=== PATIENT | female | born 1980 | race Caucasian/White ===

== ENCOUNTER 2018-08-09 08:00 | Inpatient (IN) | payer OTHER ==
[~2018-08-09 08:00] MED LIST: CITRIC ACID/SODIUM CITRATE 30 ML UNIT-DOSE CUP PO ONE; ELECTROLYTE-148 SOLN 1,000 ML IV SCH
[2018-08-09] MEDS ORDERED: ELECTROLYTE-148 SOLN 1,000 ML IV SCH ×2 (08:45→09:00)
[2018-08-09] MEDS ORDERED: CITRIC ACID/SODIUM CITRATE 30 ML UNIT-DOSE CUP PO ONE (08:45)
--- NOTE | 2018-08-09 08:51 | HP ---
Past Medical History - Primary Care Physician PCP:: Steven Marquez - Admission Chief Complaint: post date, AMA, polyhydramnions, non engaged head History of Present Illness: 38 yo f 40.5 weeks, with polyhydramnions and non engaged head requesting c/ s, declined induction. risks associated with c/s discussed with patient in detail . aware risks of infection, bleeding, DVT,risks for future discussed with patient, History Source: Patient Limitations to Obtaining History: No Limitations - Past Medical History Gastrointestinal: Yes: Esophageal Varices ...: 1 ...Para: 0 ...Term: 0 ...: 0 ...Spon : 0 ...Induced : 0 ...Multiple Gestation: 0 - Past Surgical History Hx Myomectomy: No - Smoking History Have you smoked in the past 12 months: No - Alcohol/Substance Use Hx Alcohol Use: No History of Substance Use: reports: None - Social History Usual Living Arrangement: Yes: With Spouse History of Recent Travel: No Home Medications - Allergies Allergies/Adverse Reactions: Allergies Allergy/AdvReac Type Severity Reaction Status Date / Time No Known Allergies Allergy Verified 08/09/18 08:17 - Home Medications Home Medications: Ambulatory Orders Vits96/Iron Fum/Folic [ Tablet] 1 each PO DAILY 08/09/18 Review of Systems - Review of Systems Constitutional: reports: No Symptoms Eyes: reports: No Symptoms HENT: reports: No Symptoms Neck: reports: No Symptoms Respiratory: reports: No Symptoms Gastrointestinal: reports: No Symptoms Genitourinary: reports: No Symptoms Breasts: reports: No Symptoms Reported Musculoskeletal: reports: No Symptoms Integumentary: reports: No Symptoms Neurological: reports: No Symptoms Endocrine: reports: No Symptoms Hematology/Lymphatic: reports: No Symptoms Psychiatric: reports: No Symptoms Physical Exam - Maternity Constitutional: Yes: Obese Eyes: Yes: WNL HENT: Yes: WNL Neck: Yes: WNL Breast(s): Yes: WNL - Abdominal Exam/OB Number of Fetuses: Single Presentation: Vertex Contractions: No Intensity: Unaware Monitor Mode: External Heart Rate (range): 140 Heart Rate Location: [facility] Category: I Accelerations: Uniform Decelerations: None - Vaginal Exam/OB Vaginal Bleediing: No Speculum Exam: No Dilatation (cm): 0 Effacement (%): 50 Presentation: Vertex/Position Station: -4 - Physical Exam Musculoskeletal: Yes: WNL Extremities: Yes: WNL Edema: Yes Edema: LLE: Trace, RLE: Trace Deep Tendon Reflex Grade: Normal +2 ...Motor Strength: WNL Psychiatric: Yes: WNL Problem List - Problems (1) Post-dates Code(s): O48.0 - POST-TERM Qualifiers: Post-term type: 40-42 weeks gestation Qualified Code(s): O48.0 - Post-term (2) Polyhydramnios affecting Code(s): O40.9XX0 - POLYHYDRAMNIOS, UNSP TRIMESTER, NOT APPLICABLE OR UNSP (3) High head at term with problem Code(s): O32.4XX0 - MATERNAL CARE FOR HIGH HEAD AT TERM, NOT APPLICABLE OR UNSP Qualifiers: Fetus number: single or unspecified fetus Qualified Code(s): O32.4XX0 - Maternal care for high head at term, not applicable or unspecified (4) Advanced maternal age (AMA) in Code(s): [id number] - Assessment/Plan primary LST c/s, risks and benfit discussed with patient in detail, ulternatives explained
[2018-08-09 08:54] VITALS: BMI 34.9
[2018-08-09] MEDS ORDERED: OXYTOCIN 20 UNITS in 0.9% NS 40 UNIT/2,000 ML INFUS.BAG IV ONE (09:20)
[2018-08-09] MEDS ORDERED: ONDANSETRON 4 MG/2 ML VIAL IVPUSH PRN (09:58)
[2018-08-09] MEDS ORDERED: morphine SULFATE/PF 0.5 MG/ML (2cc Syringe - QUVA) EP ONE (09:58)
[2018-08-09] MEDS ORDERED: PRENATAL VITAMINS W/ FOLIC ACID TABLET (FP) PO SCH (10:00)
[2018-08-09] MEDS ORDERED: morphine SULFATE/PF 0.5 MG/ML (2cc Syringe - QUVA) ONE (10:05)
[2018-08-09] MEDS ORDERED: ceFAZolin SODIUM 1 GM VIAL ONE (10:06)
[2018-08-09] MEDS ORDERED: LIDOCAINE HCL/PF 2% SDV 5ML VIAL ONE (10:38)
[2018-08-09] MEDS ORDERED: ePHEDrine SULFATE 50 MG/1 ML AMPULE ONE (10:46)
[2018-08-09] MEDS ORDERED: MIDAZOLAM HCL 2 MG/2 ML SINGLE DOSE VIAL ONE (10:53)
[2018-08-09 11:41] LABS: VENOUS PC02 45.8 mmHg (41-51)
[2018-08-09 11:45] LABS: VENOUS PH 7.33 (7.31-7.41); VENOUS PO2 19.4 mmHg (30-40)
[2018-08-09 11:46] LABS: ARTERIAL BLD GAS O2 SATURATION 6.2 % (95-98); ARTERIAL BLOOD GAS BASE EXCESS -1.9 meq/l (-2-2); ARTERIAL BLOOD GAS PCO2 58.4 mmHg (35-45); ARTERIAL BLOOD GAS pH 7.27 (7.35-7.45)
[2018-08-09 11:48] LABS: ARTERIAL BLOOD GAS PO2 7.9 mmHg (80-105)
[2018-08-09] MEDS ORDERED: BENZOCAINE 28 GM HEMORRHOIDAL OINTMENT PR PRN (11:58)
[2018-08-09] MEDS ORDERED: METHYLERGONOVINE MALEATE 0.2 MG/1 ML AMP IM PRN (11:58)
[2018-08-09] MEDS ORDERED: WITCH HAZEL 50% (TUCKS) 40 PAD/JAR PAD TP PRN (11:58)
[2018-08-09] MEDS ORDERED: diphenhydrAMINE HCL 25 MG CAPSULE (FP) PO PRN (11:58)
[2018-08-09] MEDS ORDERED: BENZOCAINE 20% 57 GM BOTTLE TP PRN (11:58)
[2018-08-09] MEDS ORDERED: OXYTOCIN 20 UNITS in 0.9% NS 20 UNIT/1,000 ML INFUS.BAG IV SCH (12:00)
--- NOTE | 2018-08-09 12:06 | OP ---
Operative Note - Note: Operative Date: 08/09/18 Pre-Operative Diagnosis: postdate , poly, head high at term Operation: primary LST c/s Findings: live baby girl 9/9, ROt , cord around neck one , AF 1000cc Post-Operative Diagnosis: Same as Pre-op Surgeon: Steven Marquez Mixing House Operator: Deana Marin Anesthesia: Spinal Specimens Removed: placenta Estimated Blood Loss (mls): 500 Drains & Tubes with Location: [place] Operative Report Dictated: Yes
[2018-08-09] MEDS: CEFAZOLIN 1 GM/D5W 1 GM/50 ML BAG IVPB SCH (17:11)
[2018-08-09] MEDS: IBUPROFEN 800 MG/8 ML IJ IVPB PRN (22:16)
[2018-08-10] MEDS: CEFAZOLIN 1 GM/D5W 1 GM/50 ML BAG IVPB SCH (02:18)
[2018-08-10] MEDS: IBUPROFEN 800 MG/8 ML IJ IVPB PRN (04:18)
--- NOTE | 2018-08-10 06:27 | OP ---
DATE OF OPERATION: 08/08/2018 PREOPERATIVE DIAGNOSIS: , post dates, 40.5 weeks gestation, head high at term, advanced maternal age, and polyhydramnios. Request of section. POSTOPERATIVE DIAGNOSIS: Primary low segment transverse section. SURGEON: Steven Vo MD CUSTOM BOW MAKER: Deana Marin MD ANESTHESIA: Spinal. ANESTHESIOLOGIST: Brandon Motley MD ESTIMATED BLOOD LOSS: 500 mL. FINDING: Live baby girl, Apgars 9 and 9, ROT position with cord around the neck x1, and polyhydramnios. OPERATION: The patient was taken to the operating room, had adequate spinal anesthesia. Abdomen and perineum were prepped and draped. Pfannenstiel abdominal skin incision was made. Abdominal wall was cut layer by layer until peritoneum was exposed and incised. Upon entering the abdominal cavity, lower uterine segment was identified, uterovesical fold of peritoneum was established, and bladder was pushed down. Then, with the lower blade of the [place] retractor in the pelvis, a low transverse uterine incision was made. Amniotic sac was entered. There was a large amount of amniotic fluid, probably about 1000 mL. Then, uterine incision extended laterally with bandage scissors. Head delivered from right occiput transverse position. Nasopharynx was suctioned. Cord around the neck x1 reduced. Live baby girl was delivered, 9, 9. Placenta was delivered manually. Uterine cavity was cleaned of all remaining tissue. Uterine incision was closed in 2 layers, 1st layer with 0 Biosyn continuous suture, the 2nd layer with 0 Biosyn imbricating the 1st layer. Bladder flap was closed with 0 Biosyn continuous suture. Both tubes and ovaries were checked, were normal. No active bleeding was seen. All the lap pad, sponge, and instrument counts were correct. Then, peritoneum was closed with 0 Biosyn continuous suture, muscles were brought together with interrupted sutures of 0 Biosyn, fascia was closed with 0 Biosyn continuous suture, subcutaneous fat with interrupted suture of 0 Biosyn, and skin was closed with 3-0 Vicryl subcuticular suture. Patient tolerated the procedure well, left the OR in good condition. STEVEN VO M.D. [id number]
--- NOTE | 2018-08-10 06:51 | PN ---
Post Progress Note - Subjective Subjective: Patient without acute complaints. Reports tolerating oral intake without nausea or vomiting. Ambulating without dizziness. Denies fevers or chills. Pain well controlled with oral pain medication. without difficulty. Passing flatus Post Day: 1 Type of Delivery: Primary C/S Vital Signs: Vital Signs Temperature 98.4 F 08/10/18 05:59 Pulse Rate 61 08/10/18 05:59 Respiratory Rate 18 08/10/18 05:59 Blood Pressure 123/62 08/10/18 05:59 O2 Sat by Pulse Oximetry (%) 99 08/09/18 13:00 Breast Exam: Yes: Soft Uterus: Yes: Fundus Firm Incision: Yes: Dressing dry and intact Abdomen/GI: Yes: Abdomen soft Lochia: Yes: Rubra Lochia, amount: Small Extremities: Yes: Calves non-tender Perineum: Yes: Intact Activity: Ambulating Assessment/Plan 38yo P1 s/p Primary c/section VSS, Afebrile Doing well follow CBC Rh positive - no need for RhoGam encourage ambulation and cont. Routine care
[2018-08-10 08:19] LABS: BASO % 0.4 % (0-2.0); EOS % 0.2 % (0-4.5); HEMATOCRIT 34.5 % (32.4-45.2); HEMOGLOBIN 11.4 GM/dL (10.7-15.3); LYMPH % 10.5 % (8-40); MCH 30.1 pg (25.7-33.7); MCHC 33.1 g/dl (32.0-36.0); MEAN CELL VOLUME 90.8 fl (80-96); MEAN PLT VOLUME 9.1 fl (7.5-11.1); MONO % 6.2 % (3.8-10.2); NEUT % 82.7 % (42.8-82.8); PLATELET COUNT 201 K/MM3 (134-434); RDW 13.6 % (11.6-15.6); WHITE BLOOD COUNT 14.1 K/mm3 (4.0-10.0)
[2018-08-10] MEDS: ENOXAPARIN NA (PORCINE) 40 MG/0.4 ML DISP.SYRIN SQ SCH (09:36)
[2018-08-10] MEDS: PRENATAL VITAMINS W/ FOLIC ACID TABLET (FP) PO SCH (09:43)
[2018-08-10] MEDS: oxyCODONE HCL 5 MG TABLET PO PRN ×4 (10:50→21:50)
[2018-08-10] MEDS: IBUPROFEN 600 MG TABLET (FP) PO PRN ×4 (10:50→21:51)
[2018-08-10] MEDS: BISACODYL 10 MG SUPP.RECT RC PRN (14:41)
--- NOTE | 2018-08-10 15:08 | PN ---
Progress Note (short form) - Note Progress Note: Anesthesia Post op/Pain Pt seen and examined S:Alert and awake comfortable O: Vital Signs Temperature 97.8 F 08/10/18 09:00 Pulse Rate 79 08/10/18 09:00 Respiratory Rate 18 08/10/18 10:00 Blood Pressure 127/62 08/10/18 09:00 O2 Sat by Pulse Oximetry (%) 99 08/09/18 13:00 CBC, BMP 08/10/18 07:35 a/P: Current Active Problems Advanced maternal age (AMA) in (Acute) High head at term with problem (Acute) Polyhydramnios affecting (Acute) Post-dates (Acute) s/p c section Doing well post op Continue current care Bill Smith MD
[2018-08-10] MEDS: SIMETHICONE 80 MG TAB.CHEW (FP) PO PRN (20:52)
[2018-08-11] MEDS: oxyCODONE HCL 5 MG TABLET PO PRN ×2 (02:23→22:56)
[2018-08-11] MEDS: SIMETHICONE 80 MG TAB.CHEW (FP) PO PRN ×5 (02:23→18:37)
[2018-08-11] MEDS: IBUPROFEN 600 MG TABLET (FP) PO PRN ×6 (02:23→22:57)
--- NOTE | 2018-08-11 02:23 | PN ---
Post Progress Note - Subjective Subjective: Patient without acute complaints. Reports tolerating oral intake without nausea or vomiting. Ambulating without dizziness. Denies fevers or chills. Pain well controlled with oral pain medication. without difficulty. Passing flatus. Post Day: 2 Type of Delivery: Primary C/S Vital Signs: Vital Signs Temperature 97.4 F L 08/10/18 22:00 Pulse Rate 90 08/10/18 22:00 Respiratory Rate 20 08/10/18 22:00 Blood Pressure 115/93 08/10/18 22:00 O2 Sat by Pulse Oximetry (%) 99 08/09/18 13:00 Breast Exam: Yes: Soft Uterus: Yes: Fundus Firm, Fundus below umbilicus Incision: Yes: Sutures intact Abdomen/GI: Yes: Abdomen soft, Abdominal Distention (minimia;l, soft), Passing flatus, Tolerating PO. No: Tender Lochia: Yes: Serosa Lochia, amount: Small Extremities: Yes: Calves non-tender, Edema (trace) Activity: Ambulating - Labs Labs: CBC WBC 14.1 K/mm3 (4.0-10.0) H 08/10/18 07:35 RBC 3.80 M/mm3 (3.60-5.2) 08/10/18 07:35 Hgb 11.4 GM/dL (10.7-15.3) 08/10/18 07:35 Hct 34.5 % (32.4-45.2) 08/10/18 07:35 MCV 90.8 fl (80-96) 08/10/18 07:35 MCH 30.1 pg (25.7-33.7) 08/10/18 07:35 MCHC 33.1 g/dl (32.0-36.0) 08/10/18 07:35 RDW 13.6 % (11.6-15.6) 08/10/18 07:35 Plt Count 201 K/MM3 (134-434) 08/10/18 07:35 MPV 9.1 fl (7.5-11.1) 08/10/18 07:35 Absolute Neuts (auto) 11.6 K/mm3 (1.5-8.0) H 08/10/18 07:35 Neutrophils % 82.7 % (42.8-82.8) 08/10/18 07:35 Lymphocytes % 10.5 % (8-40) D 08/10/18 07:35 Monocytes % 6.2 % (3.8-10.2) 08/10/18 07:35 Eosinophils % 0.2 % (0-4.5) 08/10/18 07:35 Basophils % 0.4 % (0-2.0) 08/10/18 07:35 Nucleated RBC % 0 % (0-0) 08/10/18 07:35 Assessment/Plan 38 yo POD # 2 s/p R CD afebrile, vital signs stable doing well 1. Continue routine postoperative care. 2. Encourage ambulation and incentive spirometer use 3. Continue oral pain medication 4. Anticipate discharge home postoperative day #3 or #4
[2018-08-11] MEDS: PRENATAL VITAMINS W/ FOLIC ACID TABLET (FP) PO SCH (09:38)
[2018-08-11] MEDS: ENOXAPARIN NA (PORCINE) 40 MG/0.4 ML DISP.SYRIN SQ SCH (09:38)
[2018-08-11] MEDS: OXYTOCIN 20 UNITS in 0.9% NS 20 UNIT/1,000 ML INFUS.BAG IV SCH ×3 (09:43→22:32)
[2018-08-11] MEDS: ACETAMINOPHEN 325 MG TABLET (FP) PO PRN ×3 (10:14→18:35)
[2018-08-11] MEDS ORDERED: SENNOSIDES/DOCUSATE COMBO (SENNA PLUS) TABLET (UD) PO PRN (22:00)
[2018-08-12] MEDS: IBUPROFEN 600 MG TABLET (FP) PO PRN ×5 (03:09→21:23)
[2018-08-12] MEDS: oxyCODONE HCL 5 MG TABLET PO PRN (03:09)
--- NOTE | 2018-08-12 06:32 | PN ---
Progress Note (short form) - Note Progress Note: pod3 , no c/o . ambulating, had BM CBC, BMP 08/10/18 07:35 Last Vital Signs Temp Pulse Resp BP Pulse Ox 97.9 F 59 L 18 139/73 99 08/11/18 22:00 08/11/18 22:00 08/11/18 22:00 08/11/18 22:00 08/09/18 13:00 abdomen soft, no distesion , no cva BS present, incision dry, clean, no discharge, healing well no excess vaginal bleeding, no calf tenderness plan ambulate cbc today d/c home in am Problem List - Problems (1) Post-dates Code(s): O48.0 - POST-TERM Qualifiers: Post-term type: 40-42 weeks gestation Qualified Code(s): O48.0 - Post-term (2) Polyhydramnios affecting Code(s): O40.9XX0 - POLYHYDRAMNIOS, UNSP TRIMESTER, NOT APPLICABLE OR UNSP (3) High head at term with problem Code(s): O32.4XX0 - MATERNAL CARE FOR HIGH HEAD AT TERM, NOT APPLICABLE OR UNSP Qualifiers: Fetus number: single or unspecified fetus Qualified Code(s): O32.4XX0 - Maternal care for high head at term, not applicable or unspecified (4) Advanced maternal age (AMA) in Code(s): [id number] -
[2018-08-12] MEDS: ACETAMINOPHEN 325 MG TABLET (FP) PO PRN ×4 (07:54→21:24)
[2018-08-12] MEDS: SIMETHICONE 80 MG TAB.CHEW (FP) PO PRN ×4 (07:55→21:23)
[2018-08-12 07:56] LABS: BASO % 0.7 % (0-2.0); EOS % 1.9 % (0-4.5); HEMATOCRIT 32.9 % (32.4-45.2); HEMOGLOBIN 11.2 GM/dL (10.7-15.3); LYMPH % 22.7 % (8-40); MCH 30.9 pg (25.7-33.7); MCHC 33.9 g/dl (32.0-36.0); MEAN PLT VOLUME 8.7 fl (7.5-11.1); MONO % 5.9 % (3.8-10.2); NEUT % 68.8 % (42.8-82.8); RBC 3.62 M/mm3 (3.60-5.2); RDW 13.8 % (11.6-15.6); WHITE BLOOD COUNT 10.2 K/mm3 (4.0-10.0)
[2018-08-12 08:25] LABS: PLATELET COUNT 270 K/MM3 (134-434)
[2018-08-12] MEDS: PRENATAL VITAMINS W/ FOLIC ACID TABLET (FP) PO SCH (09:45)
[2018-08-12] MEDS: ENOXAPARIN NA (PORCINE) 40 MG/0.4 ML DISP.SYRIN SQ SCH (09:45)
--- NOTE | 2018-08-12 18:24 | PATH ---
Surgical Pathology Report Patient Name: MAYUR ZAMORA [facility]. Rec. #: [id number] /Age/Gender: 1980 (Age: 38) / F Account: [id number] Location: [facility] OBS/CASE SEALER Taken: 08/09/2018 Received: 08/10/2018 Reported: 08/12/2018 Physicians: Steven Marquez M.D. Specimen(s) Received PLACENTA Clinical History , 40.5 weeks, post dates, polyhydramnios, advanced maternal age Final Diagnosis PLACENTA: THIRD TRIMESTER PLACENTA WITH FOCAL CALCIFICATION. TRIVASCULAR CORD. MEMBRANES WITH NO DIAGNOSTIC ABNORMALITIES. Electronically Signed Dorothy Eastman M.D. Gross Description The specimen is received fresh labeled placenta and is a 556 gram, 18.0 x 17.0 x 2.7 cm. placenta with attached membranes and umbilical cord. The attached membranes are steele, translucent with focal opacities and display circumarginate insertion. The umbilical cord measures 16 cm. in length and averages 1 cm. in diameter. The cord inserts centrally. No true knots or strictures are identified. Cut surface of the umbilical cord reveals 3 vessels. The surface is syed blue with moderate fibrin deposition and appropriate caliber vessels. The maternal surface is red-brown with focal defects. Sectioning reveals red-brown, spongy parenchyma. No lesions are identified. Ear Nose Throat Physician sections are submitted in three cassettes as follows: 1- membrane rolls and umbilical cord; 2-3- full thickness sections of placenta. /08/11/2018 [facility]08/11/2018
[2018-08-12] MEDS: BISACODYL 10 MG SUPP.RECT RC PRN (21:24)
--- NOTE | 2018-08-13 09:55 | DS ---
Physical Exam-MANAGER CATEGORY Vital Signs: Vital Signs Temperature 98.3 F 08/12/18 21:04 Pulse Rate 58 L 08/12/18 21:04 Respiratory Rate 18 08/12/18 21:04 Blood Pressure 115/72 08/12/18 21:04 O2 Sat by Pulse Oximetry (%) 99 08/09/18 13:00 Constitutional: Yes: Well Nourished, No Distress, Calm Eyes: Yes: WNL HENT: Yes: WNL Neck: Yes: WNL, Supple, Trachea Midline Cardiovascular: Yes: WNL, Regular Rate and Rhythm Respiratory: Yes: WNL, Regular, CTA Bilaterally Gastrointestinal: Yes: WNL, Normal Bowel Sounds, Soft Pelvis: Yes: WNL External Genitalia: Yes: Normal ....Post : Yes: Uterus firm, Uterus non-tender Breast(s): Yes: WNL Musculoskeletal: Yes: WNL Extremities: Yes: WNL Edema: Yes (trace) Edema: LUE: Trace, LLE: Trace Integumentary: Yes: WNL Wound/Incision: Yes: Clean/Dry, Well Approximated Neurological: Yes: WNL, Alert, Oriented ...Motor Strength: WNL Psychiatric: Yes: WNL, Alert, Oriented Labs: CBC, BMP 08/12/18 07:12 Delivery - Delivery Type of Anesthesia: Spinal Episiotomy/Laceration: None EBL (cc): 500 Delivery, Single - Stages of Labor Date of Delivery: 08/09/18 Time of Delivery: 11:05 Time Placenta Delivered: 11:06 - Condition of Target Aircraft Technician/Corporate Wellness Coordinator Present: Yes Name: Kamila Hall Gender: Female Weight: 8 lb 8 oz Position: Right, OT Total Hours ROM (Hrs/Mins): 0/2 - 1 Minute Total Score: 9 5 Minutes Total Score: 9 - [place] Feeding Plan Initial Plan: Exclusive throughout hospitalization Remarks - Remarks Remarks: Instructed - nothing vaginally, Return to the office in 1 week for incision check Discharge Summary Reason For Visit: C SECTION Current Active Problems Advanced maternal age (AMA) in (Acute) High head at term with problem (Acute) Polyhydramnios affecting (Acute) Post-dates (Acute) Procedures: Principal: Primary LST c/section Hospital Course: Unremarkable Condition: Good - Instructions Diet, Activity, Other Instructions: Return to office in 1 week for incision check Physical activity Resume your normal everyday activity as tolerated no heavy lifting or exercise until seen by your surgeon. You may walk unlimited dino of and climb stairs. You may resume driving the car when you feel safe and comfortable behind the wheel. No sexual activity as instructed. Wound care If you have a bandage, leave it on, and keep dry for 48-72 hours. After that time discard the outer bandage. If they are tapes on the skin under the out of bandage leave them in place. They will peel off in the next 7 to 10 days. Do Not Peel them off. You may shower the day after surgery. If there are tapes present on the skin, you may shower over them. Diet There are no dietary restrictions. Eat healthy, high-fiber foods. Drink 6 to 8 glasses of liquid each day. This will assist in keeping your bowels are regular. Pain management You may take Tylenol or acetaminophen or Ibuprofen (for example, Motrin, Advil etc.) as prescribed for moderate to severe pain. Call MD for any of the following: Severe pain not relieved by medication Fever of 101 or higher Excessive bleeding or drainage on dressing Inability to urinate Referrals: Steven Marquez MD [Staff Physician] - Disposition: HOME - Home Medications Comprehensive Discharge Medication List: Ambulatory Orders Vits96/Iron Fum/Folic [ Tablet] 1 each PO DAILY 08/09/18 Docusate Sodium [Colace -] 100 mg PO BID PRN #30 capsule 08/11/18 Ibuprofen [Motrin -] 600 mg PO QID #60 tablet 08/11/18
[2018-08-13] MEDS: PRENATAL VITAMINS W/ FOLIC ACID TABLET (FP) PO SCH (10:17)
[2018-08-13] MEDS: ENOXAPARIN NA (PORCINE) 40 MG/0.4 ML DISP.SYRIN SQ SCH (10:17)
[2018-08-13] MEDS: ACETAMINOPHEN 325 MG TABLET (FP) PO PRN (10:21)
[2018-08-13] MEDS: IBUPROFEN 600 MG TABLET (FP) PO PRN (10:21)
[2018-08-13] MEDS: SIMETHICONE 80 MG TAB.CHEW (FP) PO PRN (10:22)
[2018-08-13 11:45] VITALS: BP 120/74; PULSE 57; TEMP 97.6
== END 2018-08-13 12:45 | disposition home or self-care (01) | DRG 788 ==
LOC: JLDR 08:00 → J3W 13:15
PROVIDERS: ADMIT Obstetrics & Gynecology; ATTEND Obstetrics & Gynecology
PROC: 10D00Z1 Extraction of Products of Conception, Low, Open Approach (ICD-10-PCS; principal; 2018-08-09)
DX: O48.0 Post-term pregnancy (principal); O40.3XX0 Polyhydramnios, third trimester, not applicable or unspecified; O32.4XX0 Maternal care for high head at term, not applicable or unspecified; O69.81X0 Labor and delivery complicated by cord around neck, without compression, not applicable or unspecified; Z3A.40 40 weeks gestation of pregnancy; Z37.0 Single live birth
CPT/HCPCS: 36415; 36600; 82803; 85025; 88307-TC

== ENCOUNTER 2021-07-22 13:36 | Emergency (ER) | payer OTHER ==
[2021-07-22 13:47] VITALS: BP 129/72; PULSE 98; TEMP 98; BMI 33.8
== END 2021-07-22 14:40 | disposition home or self-care (01) ==
LOC: JER 13:36
DX: O26.893 Other specified pregnancy related conditions, third trimester (principal); R55 Syncope and collapse; R42 Dizziness and giddiness; R11.0 Nausea; Z3A.38 38 weeks gestation of pregnancy
CPT/HCPCS: 82962; 93005; 93010; 99284-25

== ENCOUNTER 2021-07-25 08:00 | Inpatient (IN) | payer OTHER ==
[2021-07-29 09:47] VITALS: BMI 34.0
[2021-07-29] MEDS ORDERED: CITRIC ACID/SODIUM CITRATE 30 ML UNIT-DOSE CUP PO ONE (09:59)
[2021-07-29] MEDS ORDERED: ELECTROLYTE-148 SOLN 1,000 ML IV SCH (10:00)
[2021-07-29] MEDS ORDERED: ONDANSETRON 4 MG/2 ML VIAL ONE (10:58)
[2021-07-29] MEDS ORDERED: OXYTOCIN 10 UNITS/ML VIAL ONE (10:58)
[2021-07-29] MEDS ORDERED: KETOROLAC TROMETHAMINE 30 MG/1 ML VIAL ONE (10:58)
[2021-07-29] MEDS ORDERED: morphine SULFATE/PF 1 MG/2 ML (2cc Syringe - QUVA) ONE (10:58)
[2021-07-29] MEDS ORDERED: PHENYLEPHRINE HCL 10 MG/1 ML SINGLE DOSE VIAL ONE (10:58)
[2021-07-29] MEDS ORDERED: METHYLERGONOVINE MALEATE 0.2 MG/1 ML AMP IM PRN (12:39)
[2021-07-29] MEDS ORDERED: ONDANSETRON 4 MG/2 ML VIAL IVPUSH PRN (12:42)
[2021-07-29 14:01] LABS: CORD BASE EXCESS -3.6 mmol/L (0-2); CORD HCO3 23.6 mmHg (20-29); CORD PCO2 50.4 mmHg (30-78); CORD pH 7.288 (7.14-7.44)
[2021-07-29 14:03] LABS: CORD HCO3 26.1 mmHg (20-29); CORD PCO2 63.5 mmHg (30-78); CORD pH 7.231 (7.14-7.44)
[2021-07-29] MEDS ORDERED: ONDANSETRON 4 MG/2 ML VIAL IVPUSH ONE (17:35)
[2021-07-29] MEDS: OXYTOCIN 20 UNITS in 0.9% NS 20 UNIT/1,000 ML INFUS.BAG IV SCH (18:53)
[2021-07-29] MEDS: ACETAMINOPHEN 1000 MG/100 ML BAG IVPB PRN (21:57)
[2021-07-30] MEDS: IBUPROFEN 600 MG TABLET (FP) PO PRN (02:15)
[2021-07-30] MEDS: SIMETHICONE 80 MG TAB.CHEW (FP) PO PRN ×4 (05:24→23:02)
[2021-07-30] MEDS: ACETAMINOPHEN 1000 MG/100 ML BAG IVPB PRN (05:25)
[2021-07-30] MEDS: ACETAMINOPHEN 325 MG TABLET (FP) PO PRN ×2 (10:22→23:02)
[2021-07-30] MEDS: ENOXAPARIN NA (PORCINE) 40 MG/0.4 ML DISP.SYRIN SQ SCH (10:22)
[2021-07-30 11:17] LABS: BASO % 0.2 % (0-2.0); EOS % 0.3 % (0-4.5); HEMATOCRIT 37.5 % (32.4-45.2); HEMOGLOBIN 12.7 GM/dL (10.7-15.3); LYMPH % 10.7 % (8-40); MCHC 33.9 g/dl (32.0-36.0); MEAN CELL VOLUME 91.6 fl (80-96); MEAN PLT VOLUME 8.7 fl (7.5-11.1); MONO % 6.1 % (3.8-10.2); NEUT % 82.7 % (42.8-82.8); PLATELET COUNT 171 10^3/uL (134-434); RDW 13.6 % (11.6-15.6); WHITE BLOOD COUNT 12.3 K/mm3 (4.0-10.0)
[2021-07-30] MEDS ORDERED: BISACODYL 10 MG SUPP.RECT RC PRN (12:39)
[2021-07-30] MEDS ORDERED: IBUPROFEN 800 MG/8 ML IJ IVPB PRN (13:06)
[2021-07-30] MEDS: oxyCODONE HCL 5 MG TABLET PO PRN ×2 (19:57→20:10)
[2021-07-31] MEDS: oxyCODONE HCL 5 MG TABLET PO PRN ×3 (01:16→15:17)
[2021-07-31] MEDS: SIMETHICONE 80 MG TAB.CHEW (FP) PO PRN ×3 (01:16→20:08)
[2021-07-31] MEDS: IBUPROFEN 600 MG TABLET (FP) PO PRN ×5 (02:12→22:38)
[2021-07-31] MEDS: OXYTOCIN 20 UNITS in 0.9% NS 20 UNIT/1,000 ML INFUS.BAG IV SCH (07:06)
[2021-07-31] MEDS: ACETAMINOPHEN 325 MG TABLET (FP) PO PRN (07:37)
[2021-07-31] MEDS: ENOXAPARIN NA (PORCINE) 40 MG/0.4 ML DISP.SYRIN SQ SCH ×2 (07:38→09:16)
[2021-07-31] MEDS ORDERED: ACETAMINOPHEN 325 MG TABLET (FP) PO ONE (09:45)
[2021-07-31] MEDS ORDERED: oxyCODONE HCL 5 MG TABLET PO ONE (09:45)
[2021-08-01] MEDS: SIMETHICONE 80 MG TAB.CHEW (FP) PO PRN ×3 (02:44→20:57)
[2021-08-01 08:32] LABS: BASO % 0.5 % (0-2.0); EOS % 1.6 % (0-4.5); HEMATOCRIT 38.8 % (32.4-45.2); HEMOGLOBIN 13.2 GM/dL (10.7-15.3); LYMPH % 19.9 % (8-40); MCH 31.7 pg (25.7-33.7); MCHC 33.9 g/dl (32.0-36.0); MEAN CELL VOLUME 93.6 fl (80-96); MEAN PLT VOLUME 8.8 fl (7.5-11.1); MONO % 6.6 % (3.8-10.2); NEUT % 71.4 % (42.8-82.8); PLATELET COUNT 252 10^3/uL (134-434); RBC 4.15 M/mm3 (3.60-5.2); RDW 13.9 % (11.6-15.6); WHITE BLOOD COUNT 10.5 K/mm3 (4.0-10.0)
[2021-08-01] MEDS: DOCUSATE SODIUM 100 MG CAPSULE (FP) PO PRN ×2 (09:38→20:54)
[2021-08-01] MEDS: ENOXAPARIN NA (PORCINE) 40 MG/0.4 ML DISP.SYRIN SQ SCH (09:38)
[2021-08-01] MEDS: IBUPROFEN 600 MG TABLET (FP) PO PRN ×2 (09:40→13:49)
[2021-08-01 22:32] VITALS: TEMP 97.6
[2021-08-01 23:09] VITALS: PULSE 59
[2021-08-02] MEDS: IBUPROFEN 600 MG TABLET (FP) PO PRN ×2 (06:20→12:54)
[2021-08-02] MEDS: SIMETHICONE 80 MG TAB.CHEW (FP) PO PRN ×2 (06:20→12:54)
[2021-08-02] MEDS: ENOXAPARIN NA (PORCINE) 40 MG/0.4 ML DISP.SYRIN SQ SCH (09:18)
[2021-08-02 11:18] VITALS: BP 119/74
== END 2021-08-02 15:15 | disposition home or self-care (01) | DRG 783 ==
LOC: JLDR 07-29 08:40 → J3W 07-29 14:15
PROVIDERS: ADMIT Obstetrics & Gynecology; ATTEND Obstetrics & Gynecology
PROC: 10D00Z1 Extraction of Products of Conception, Low, Open Approach (ICD-10-PCS; principal; 2021-07-29)
PROC: 0UL70ZZ Occlusion of Bilateral Fallopian Tubes, Open Approach (ICD-10-PCS; 2021-07-29)
DX: O34.219 Maternal care for unspecified type scar from previous cesarean delivery (principal); U07.1 COVID-19; O98.513 Other viral diseases complicating pregnancy, third trimester; O69.81X0 Labor and delivery complicated by cord around neck, without compression, not applicable or unspecified; Z30.2 Encounter for sterilization; Z3A.39 39 weeks gestation of pregnancy; Z37.0 Single live birth
CPT/HCPCS: 36415; 36600; 82803; 85025; 86850; 86900; 86901; 88302-TC; 88307-TC

== ENCOUNTER 2023-06-08 04:12 | Day surgery (SDC) | payer OTHER ==
[2023-06-02 11:46] VITALS: BMI 29.2
[2023-06-08] MEDS ORDERED: oxyCODONE HCL 5 MG TABLET PO PRN ×2 (08:43→09:32)
[2023-06-08] MEDS ORDERED: ONDANSETRON 4 MG/2 ML VIAL IVPUSH PRN ×2 (08:43→09:32)
[2023-06-08] MEDS ORDERED: LACTATED RINGERS SOLUTION 1,000 ML IV SCH (08:45)
[2023-06-08] MEDS ORDERED: MIDAZOLAM HCL 2 MG/2 ML SINGLE DOSE VIAL ONE ×2 (08:49→08:50)
[2023-06-08] MEDS ORDERED: FENTANYL CITRATE/PF 50 MCG/ML VIAL ONE ×2 (08:49→08:51)
[2023-06-08] MEDS ORDERED: PROPOFOL 40 ML ONE (08:51)
[2023-06-08] MEDS ORDERED: DEXAMETHASONE SOD PHOSPHATE 4 MG/1 ML VIAL ONE (09:09)
[2023-06-08] MEDS ORDERED: KETOROLAC TROMETHAMINE 30 MG/1 ML VIAL ONE (09:09)
[2023-06-08] MEDS ORDERED: ONDANSETRON 4 MG/2 ML VIAL ONE ×2 (09:09→09:25)
[2023-06-08] MEDS ORDERED: IBUPROFEN 600 MG TABLET (FP) PO PRN (09:32)
[2023-06-08] MEDS ORDERED: IBUPROFEN 800 MG/8 ML IJ IVPB PRN (09:32)
[2023-06-08] MEDS ORDERED: ELECTROLYTE-148 SOLN 1,000 ML IV SCH (09:45)
[2023-06-08 12:10] VITALS: BP 122/52; PULSE 72; RESP 20; TEMP 98
== END 2023-06-08 12:00 | disposition home or self-care (01) ==
LOC: JASU-SURG 04:12
PROVIDERS: ATTEND Obstetrics & Gynecology
PROC: 0UB98ZZ Excision of Uterus, Via Natural or Artificial Opening Endoscopic (ICD-10-PCS; principal; 2023-06-08 08:30)
DX: N93.9 Abnormal uterine and vaginal bleeding, unspecified (principal); N84.0 Polyp of corpus uteri
CPT/HCPCS: 81025; 88305-TC; 94760